=== PATIENT | female | born 2000 | race Caucasian/White ===

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

== ENCOUNTER → 2018-03-20 | Outpatient (CLI) | payer OTHER ==
[~2018-03-20] MED LIST: ALBU90OI61 INH; Cheratussin AC118 ML PO; GABA300 PO; Prednisone20 MG PO
[2018-03-20 13:00] LABS: Bilirubin, Urine Neg (Neg); Blood, Urine Neg (Neg); Glucose Qualitative, Urine Neg (Neg); Ketones, Urine 1+ (Neg); Leukocyte Esterase, Urine 1+ (Neg); Nitrite, Urine Neg (Neg); Protein, Urine Neg (Neg); Urobilinogen, Urine NORM (Normal)
[2018-03-20 13:20] LABS: Appearance, Urine Hazy (Clear); Color, Urine Yellow (P-Yellow)
[2018-03-20 13:21] LABS: Uric Acid Crystals Many /hpf
[2018-03-20 13:22] LABS: Bacteria Few /hpf; Red Blood Cells, Urine Rare /hpf (0-2); Squamous Epithelial Cells Mod /hpf (Few)
== END ==
LOC: LAB 12:38 → LAB SHORT 12:38
PROVIDERS: Registered Nurse
DX: R30.0 Dysuria (principal); M54.9 Dorsalgia, unspecified; R53.83 Other fatigue
CPT/HCPCS: 81001; 87086

== ENCOUNTER → 2018-08-17 | Outpatient (CLI) | payer OTHER ==
[2018-08-21 04:13] LABS: CHLAMYDIA TRACHOMATIS, NAA Negative (Negative); NEISSERIA GONORRHOEAE, NAA Negative (Negative)
== END | disposition home or self-care (01) ==
LOC: LAB 10:33 → LAB SHORT 10:33
PROVIDERS: Advanced Practice Midwife
DX: Z11.3 Encounter for screening for infections with a predominantly sexual mode of transmission (principal)
CPT/HCPCS: 87491; 87591

== ENCOUNTER 2018-11-29 06:22 | Day surgery (SDC) | payer OTHER ==
[~2018-11-29] VITALS: Ht 162.6 cm; Wt 55.9 kg
[2018-11-29] MEDS ORDERED: NAPR220 (07:17)
[2018-11-29] MEDS ORDERED: CHOL10002 (07:18)
[2018-11-29] MEDS ORDERED: Cymbalta30 MG (07:19)
[2018-11-29] MEDS ORDERED: DIPH50 (07:19)
[2018-11-29] MEDS ORDERED: Cymbalta60 MG (07:20)
[2018-11-29] MEDS ORDERED: Melatonin1 MG (07:20)
[2018-11-29] MEDS ORDERED: MIDOL CAPLET1 EACH (07:21)
--- NOTE | 2018-11-29 08:44 | NUR ---
11/29/18 0844 Effie Nava DRESSING #3 BANDAID ON NLOWER LEFT ABDOMEN CDI DRESSING #4 TANIA PAD SCANT BLOOD
--- NOTE | 2018-11-29 08:59 | NUR ---
11/29/18 0859 Sunita Funk PT INTO RECLINER AT 0850. PT REPORTS 6/10 PAIN, BUT DENIES NAUSEA AT THIS TIME. VSS. MOM AT CHAIRSIDE. PT TOLERATING PO NOURISHMENT AT THIS TIME. GAVE 25MCG IV FENTANYL AT 0854. CALL LIGHT IN REACH.
== END 2018-11-29 09:25 | disposition home or self-care (01) ==
LOC: ORSCSDS 06:22
PROVIDERS: Obstetrics & Gynecology
PROC: 0U5F4ZZ Destruction of Cul-de-sac, Percutaneous Endoscopic Approach (ICD-10-PCS; principal; 2018-11-29 07:30)
DX: N80.3 Endometriosis of pelvic peritoneum (principal); N94.6 Dysmenorrhea, unspecified; J45.909 Unspecified asthma, uncomplicated; F20.9 Schizophrenia, unspecified; Z79.899 Other long term (current) drug therapy
CPT/HCPCS: 88305; J1885; J2250; J2405; J2710; J3010; J7120

== ENCOUNTER 2019-11-30 23:03 | Emergency (ER) | payer OTHER ==
[~2019-11-30] VITALS: Ht 162.6 cm; Wt 59.0 kg
[~2019-11-30 23:03] MED LIST changes: +CHOL10002; +Cymbalta30 MG; +Cymbalta60 MG; +DIPH50; +MIDOL CAPLET1 EACH; +Melatonin1 MG; +NAPR220
[2019-12-01] MEDS ORDERED: DULO60 PO (00:05)
[2019-12-01] MEDS ORDERED: Norethindrone Ac5 MG PO (00:05)
[2019-12-01] MEDS ORDERED: GABAPENTIN600 MG PO (00:05)
[2019-12-01] MEDS ORDERED: TRAZ50 (00:06)
[2019-12-01 00:30] LABS: Calcium, Ionized (POC) 1.25 mmol/L (1.10-1.46); Chloride (POC) 102 mmol/L (98-108); Creatinine (POC) 0.9 mg/dL (0.6-1.0); Glucose (ISTAT POC) 77 mg/dL (70-99); Hemoglobin (POC) 13.9 g/dL (12.0-16.0); Potassium (POC) 3.9 mmol/L (3.5-5.5); Sodium (POC) 137 mmol/L (135-148); Total CO2 (POC) 24 mmol/L (21-32)
== END 2019-12-01 01:13 | disposition home or self-care (01) ==
LOC: ER 23:03
PROVIDERS: Emergency Medicine
DX: J06.9 Acute upper respiratory infection, unspecified (principal); R04.2 Hemoptysis; J20.9 Acute bronchitis, unspecified; Z79.899 Other long term (current) drug therapy; J45.909 Unspecified asthma, uncomplicated
CPT/HCPCS: 36415; 71046; 80047; 85014; 85379; 99283-25; A9270